=== PATIENT | female | born 1990 | race Caucasian/White ===

== ENCOUNTER 2024-02-10 02:30 | Inpatient (IN) ==
--- NOTE | 2024-02-10 03:29 | History & Physical Report ---
Date of Service February 10, 2024 Assessment & Plan (1) Previous delivery affecting , antepartum: Plan: Patient is hoping to . At this time, she does not appear to be in labor given cervix exam and lack of organized regular contractions. Will monitor over the next few hours to watch for labor. Reviewed the risks vs benefits of - risk of uterine rupture (approx 1%) that may require blood transfusion, emergency surgery including hysterectomy, and risk of of baby/mom. Additionally, blood pressures on arrival are elevated - will monitor these, will check preeclampsia labs. History of Present Illness Chief Complaint: contractions Primary Care Provider: Rodolfo Hunt PA-C 33yo @ 38 02/13 came to L&D with contractions. No leaking fluid. No vaginal bleeding. + movement. complicated by: GDM in prior *Begin monthly Growth US's @24wks Daughter born with Tetrology of Fallot recommend echo (11/19/23@ [facility] [place]) - mild TR, f/u 4 wks - 12/30 -rpt echo shows mild/mod tricuspid valve insufficiency; recommend echo Daughter with Golenhar syndrome--this is not genetic, affects the right side Pap Neg/ HPV+ 09/21/22 *repeat pap in 1 year Prior Section affecting leaning towards ; prior was for breech Wants C/S scheduled for 39 weeks, may attempt TOLAC if labors prior C/S SCHEDULED FOR 02/17/[address] LEIVA Allergies Allergy/AdvReac Type Severity Reaction Status Date / Time celecoxib [From Celebrex] Allergy Severe Anaphylaxis Verified 02/06/24 10:30 ibuprofen Allergy Severe Anaphylaxis Verified 02/06/24 10:30 amoxicillin Allergy Mild Anxiety Verified 02/06/24 10:30 latex Allergy Mild contact Verified 02/06/24 10:30 dermatitis Home Medications Medication Instructions Recorded Confirmed Type vit 168-iron 27 mg-folic 1 cap PO DAILY 07/11/23 02/10/24 History acid 800 mcg-omega3 235 mg capsule (One-A-Day -1) acetone (urine) test (Ketone Urine #50 ea 08/26/23 02/06/24 Rx Test strips) blood sugar diagnostic ([employer] InternationalTouch #150 ea 08/26/23 02/06/24 Rx Verio test strips) blood-glucose meter (OneTouch #1 ea 08/26/23 02/06/24 Rx Verio Reflect Meter) lancets 33 gauge (OneTouch Delica #150 ea 08/26/23 02/06/24 Rx Plus Lancet) Patient History Medical History (Updated 02/05/24 @ 10:57 by Stacey Tobar PA-C) HPV in female last pap smear>states needs to be re-tested Scoliosis Heartburn during Gestational diabetes "diet controlled" Mitral valve disorder "mild thickening noted">no cards Surgical History [place] teeth removed Hx of section x 1 H/O eye surgery at age 2>strabismus repair Family History Mother Diabetes Grandmother (Maternal) Diabetes Other No family history of adverse response to anesthesia Social History Smoking Status: Never smoker Second Hand Exposure: No; Do You Dip or Chew Tobacco: No; Hx Alcohol Use: No Hx Substance Use: No Preferred Language: Bel[place]an Communication Ability: Effective Radioisotope Technologist Required: No Beliefs That Will Affect Care: None marital status: marital status details: Zander (34) [phone] Current Living Situation: Spouse Current Living Situation Comment: lives with spouse, daughter, 1 cat, 1 dog, spouse to change litter current occupational status: employed 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 Other Information That Helps Us Care for You: No Feels Safe at Home: Yes Safety Concerns: Feels Safe At This Time Assistive Devices: None Review of Systems All systems reviewed & are unremarkable except as noted in HPI & below Physical Exam Physical Exam: FHT Cat 1 [place] irreg SVE /-3 per RN Constitutional: WD/WN, vitals as above Respiratory: normal respiratory effort, lungs clear to auscultation no respiratory distress Cardiovascular: Rate/Rhythm: regular rate and regular rhythm Gastrointestinal (Abdomen): Inspection/Auscultation: abdomen normal to inspection Percussion/Palpation: abdomen soft; abdomen nontender Gravid. No s/s chorio or abruption. Skin: no rashes, warm and dry Psychiatric: A+Ox3, euthymic affect Results & Data Vital Signs (Past 12 Hours) Vital Signs Temp Pulse Resp BP 02/10/24 03:24 90 145/72 H 02/10/24 02:57 83 148/87 H 02/10/24 02:44 86 145/87 H 02/10/24 02:43 37.0 C 18 Coding Level of Care Code None Diagnoses Previous delivery affecting , antepartum O34.219
[2024-02-10 04:04] LABS: Basophils # (auto) 0.07 K/uL (0.00-0.20); Basophils % (auto) 0.3 %; Eosinophils # (auto) 0.09 K/uL (0.00-0.50); Eosinophils % (auto) 0.4 %; Hematocrit (blood only) 40.4 % (37.0-47.0); Hemoglobin 13.4 g/dl (12.0-16.0); Immature Granulocytes # (auto) 0.17 K/uL (0.01-0.20); Immature Granulocytes % (auto) 0.8 %; Lymphocytes # (auto) 2.42 K/uL (1.20-3.40); Lymphocytes % (auto) 11.6 %; Mean Corpuscular Hemoglobin 30.2 pg (25.0-34.0); Mean Corpuscular Hgb Conc 33.2 g/dL (32.0-36.0); Mean Platelet Volume 11.9 fL (9.4-12.4); Monocytes # (auto) 0.95 K/uL (0.11-0.59); Monocytes % (auto) 4.5 %; Neutrophils # (auto) 17.22 K/uL (1.40-6.50); Neutrophils % (auto) 82.4 %; Platelet Count 179 K/uL (130-400); RDW Coefficient of Variation 12.6 % (11.5-14.5); RDW Standard Deviation 41.1 fL (36.4-46.3); Red Blood Count 4.44 M/uL (4.20-5.40); White Blood Count 20.92 K/ul (4.8-10.8)
[2024-02-10 04:14] LABS: Albumin Globulin Ratio 1.1 (0.9-2); Albumin Level 3.4 gm/dl (3.4-5.0); BUN Creatinine Ratio 14.5 (10-20); Bilirubin,Total 0.3 mg/dl (0.2-1.0); Calcium 8.5 mg/dl (8.6-10.3); Creatinine Clr Calc Pharmacy 139.1 ml/min; Est GFR (African American) 137.3 ml/min; Est GFR (Non-African American) 118.5 ml/min; Potassium 4.4 mmol/L (3.5-5.1); Total Protein 6.4 gm/dl (6.0-8.3)
[2024-02-10 08:16] LABS: Creatinine Urine Random 62.8 mg/dl; Protein Creatinine Ratio Urine 0.2 (0-0.2); Total Protein Urine Random 10.2 mg/dl (0-11.9)
--- NOTE | 2024-02-10 09:41 | Labor Progress Brief Note ---
Date of Service February 10, 2024 Subjective Patient resting comfortably in bed. Patient was originally evaluated for labor. She is not in labor. However she had elevated blood pressures. Her labs are wnl and u/information services manager was within normal limits. During monitoring, the fetus had a 3 minute decel that resolved spontaneously. It has not done this again. Assessment & Plan (1) Previous delivery affecting , antepartum: (2) with 38 completed weeks gestation: Plan Fetus overall reassuring now but legit decel for three minutes. Not repetitive and has not repeated. Discussed options. Prolonged monitoring to see if does it again, minimally 6 hours and bpp. Discussed that babies don't usually do this but may be a very benign reason for doing it. It is certainly concerning. If occurs again, proceed with delivery. she is not in labor and her cervix is unfavorable for iol, so I do not recommend that. Or , as we know we have a good baby currently, and some concerns because of this decel, could proceed with c/s delivery now. After discussion and asking and answering questions to the best of my ability, they desire to proceed with c/s. Consent reviewed and signed. Physical Exam Physical Exam: cx--not checked toco--irregular contraction efm--130s with mod variability, accels present to 150s, one isolated decel noted. lasted for three minutes to 80-90. May have been with a contraction. Audible and confirmed by the nurse who was in the room at the time. Results & Data Vital Signs (Past 12 Hours) Vital Signs Temp Pulse Resp BP 02/10/24 07:23 81 124/65 02/10/24 07:09 20 02/10/24 07:09 36.9 C 20 02/10/24 06:45 81 125/61 02/10/24 03:24 90 145/72 H 02/10/24 02:57 83 148/87 H 02/10/24 02:44 86 145/87 H 02/10/24 02:43 37.0 C 18 Coding Level of Care Code None Diagnoses Previous delivery affecting , antepartum O34.219 with 38 completed weeks gestation Z3A.38
[2024-02-10] MEDS ORDERED: MoRPHine SULFATE PF 1 MG/ML 10 ML AMP/VIAL ONE (10:09)
[2024-02-10] MEDS: CITRIC ACID/SODIUM CITRATE 15 ML UDC PO SCH (10:10)
[2024-02-10] MEDS: LACTATED RINGER'S 1,000 ML IV SCH ×2 (10:10→15:26)
[2024-02-10] MEDS: CITRIC ACID/SODIUM CITRATE 15 ML UDC ONE (10:12)
[2024-02-10] MEDS: ceFAZolin 2000MG 2,000 MG/15 ML SYR IV SCH (10:25)
[2024-02-10] MEDS ORDERED: ACETAMINOPHEN 1,000 MG/100 ML VIAL IV PRN ×2 (10:36→11:50)
[2024-02-10] MEDS ORDERED: OXYTOCIN 10 UNITS/ML VIAL ONE (11:10)
[2024-02-10] MEDS ORDERED: ONDANSETRON INJ 2 MG/ML 2 ML VIAL ONE (11:10)
[2024-02-10] MEDS ORDERED: PHENYLEPHRINE HCL 25 MG/250 ML NSS IV ONE (11:11)
[2024-02-10 11:38] LABS: CO2 Cord Arterial Blood 52 mmHg (39.1-73.5); HCO3 Cord Arterial Blood 24 mmol/L (19.7-28.5); Oxygen Sat Cord Arterial Blood < 60.0 % (<60); PO2 Cord Arterial Blood 21 mmHg (4.1-31.7); pH Cord Arterial Blood 7.28 (7.1-7.38)
[2024-02-10] MEDS ORDERED: ePHEDrine sulfate 50 MG/ML AMP IV PRN (11:45)
[2024-02-10] MEDS ORDERED: HYDROmorphone INJ 0.5 MG/0.5 ML SYR IV PRN (11:45)
[2024-02-10] MEDS ORDERED: LACTATED RINGER'S 500 ML IV PRN (11:45)
[2024-02-10] MEDS ORDERED: DC INTRASPINAL MORPHINE SCH (11:45)
[2024-02-10] MEDS ORDERED: diphenhydrAMINE 50 MG/ML VIAL IV PRN (11:45)
[2024-02-10] MEDS ORDERED: MEPERIDINE HCL 25 MG/ML CARP/VIAL IV PRN (11:45)
[2024-02-10] MEDS ORDERED: NALOXONE HCL 0.08 MG in SYRINGE 1.8 ML IV PRN (11:45)
[2024-02-10] MEDS ORDERED: NALBUPHINE HCL 5 MG in SYRINGE 0 ML IV PRN (11:45)
[2024-02-10] MEDS ORDERED: NALOXONE HCL 0.4 MG/1 ML VIAL/CARP IV PRN (11:45)
[2024-02-10] MEDS ORDERED: NALOXONE HCL 1 MG in SODIUM CHLORIDE 0.9% 1,000 ML IV PRN (11:45)
[2024-02-10] MEDS ORDERED: NO NARCOTICS OR SEDATIVES SCH (11:45)
--- NOTE | 2024-02-10 11:45 | Anesthesiology Progress Note ---
Date of Service February 10, 2024 Anesthesia Post Procedure Vital Signs Vital Signs: Temp Pulse Resp BP Pulse Ox 02/10/24 11:41 77 143/69 H 02/10/24 11:40 77 99 02/10/24 10:21 85 133/77 02/10/24 07:23 81 124/65 02/10/24 07:09 20 02/10/24 07:09 36.9 C 20 02/10/24 06:45 81 125/61 02/10/24 03:24 90 145/72 H 02/10/24 02:57 83 148/87 H 02/10/24 02:44 86 145/87 H 02/10/24 02:43 37.0 C 18 Transfer of Care Handoff Completed per policy Notes Mental Status: alert / awake / arousable Nausea / Vomiting: adequately controlled Pain: adequately controlled Airway Patency, RR, SpO2: stable & adequate BP & HR: stable & adequate Hydration State: stable & adequate Neuraxial Anesthesia: was administered and sensory block is resolving Anesthetic Complications: no major complications apparent and Pt Satisfied with anesthetic care
[2024-02-10] MEDS ORDERED: BENZOCAINE 20% SPRY 85 APPLN/85 GM CAN EXT PRN (11:50)
[2024-02-10] MEDS ORDERED: MAGNESIUM HYDROXIDE SUSP 30 ML UDC PO PRN (11:50)
[2024-02-10] MEDS ORDERED: SENNA 8.6 MG TAB PO PRN (11:50)
[2024-02-10] MEDS ORDERED: ONDANSETRON INJ 2 MG/ML 2 ML VIAL IV PRN (11:50)
[2024-02-10] MEDS ORDERED: diphenhydrAMINE Capsule 25 MG CAP PO PRN (11:50)
[2024-02-10] MEDS ORDERED: HYDROCORTISONE ACETATE 25 MG SUPP PR PRN (11:50)
[2024-02-10] MEDS ORDERED: ACETAMINOPHEN 325 MG TAB PO PRN (11:50)
[2024-02-10] MEDS ORDERED: PROMETHAZINE HCL 25 MG in SODIUM CHLORIDE 0.9% 50 ML IV PRN (11:50)
--- NOTE | 2024-02-10 11:51 | Operative Report ---
PG Post Operative Report Pre & Post Diagnosis Operation Date: 02/10/24 10:30 Pre-Op Diagnosis: at 38 6/7, nonreassuring testing, unfavorable cervix, hx of previous Section Post-Op Diagnosis: at 38 6/7, nonreassuring testing, unfavorable cervix, hx of previous Section I identified the patient and participated in the time-out.: Yes Procedure Operation Date: 02/10/24 10:30 Actual Procedures pRepeat primary low Section in LD; delivery of live male at 1107 - Monae Gaffney MD, FACOG Surgeon Monae Gaffney MD, FACOG Ski Production Supervisor Pepe Araujo RN, [facility] MS[facility] Estimated Blood Loss 588 Findings Consistent with Post-Op Diagnosis Fluids ivf--1000cc uop--150cc clear Specimens cord blood gases Drains abreu Anesthesia Type Spinal Complications none Disposition Accompanied Patient To Recovery: Yes Disposition: L&D Indications Patient is a 33yowf with hx of previous who presented to labor and delivery with contractions. Hoping to . During observation, fetus had a decel to 80-90 for three minutes. cx unfavorable. Given remote from delivery and concern for well being, decided to proceed with delivery. Description of Procedure The patient was taken to the operating room where she was identified verbally and by bracelet. She was seated on the operating table where a spinal anesthetic was placed by anesthesia. She was then placed in the supine position with a leftward tilt. A Abreu catheter was placed sterilely. the patient was prepped and draped in a normal standard fashion. the anesthetic was tested and found to be adequate. A time-out was held, identifying correct patient, procedure, positioning and preoperative antibiotics. There were no concerns. A Pfannenstiel skin incision was made with a knife and taken down to the underlying layer of fascia with the knife and Bovie electrocautery. Bleeding was attended to with the Bovie. The fascia was incised in the midline with the knife and taken out laterally with scissors. The superior edge of the fascial incision was grasped, elevated and the underlying layer of rectus muscle was taken off bluntly and with scissors. In a similar fashion, the inferior edge of the fascial incision was grasped, elevated and the underlying layer of rectus muscle was taken off bluntly and with scissors. The muscles were bluntly in the midline. The peritoneum was entered sharply. The incision was then stretched. The bladder blade was placed. The vesicouterine peritoneum was identified, entered with scissors and taken out laterally with scissors. The bladder flap was created digitally A hysterotomy incision was scored with a knife and the incision was stretched superiorly and inferiorly with the finish off operator's fingers. The juan was thin. The operators hand was placed into the incision and the head was delivered atraumatically. No nuchal cord. The nose and mouth were bulb suctioned. the rest of the was then delivered without difficulty. The nose and mouth were again bulb suctioned. The cord was clamped and cut and the was then handed off to the awaiting sales operations analyst for drying and attention. Cord blood and segment were obtained. The placenta was Manually extracted. The uterus was exteriorized and cleared of all clot and debris with moistened laparotomy sponges. The hysterotomy incision was repaired in two layers, the first in a running locked layer, the second in an imbricating layer. Hemostasis was noted to be good. Posterior cul-de-sac was irrigated and cleared of all clot and debris. The hysterotomy incision was again inspected and found to be hemostatic. the uterus was reinteriorized. Hysterotomy incision was again inspected and a suture was needed in the right corner. then hemostasis was good. The fascia was then reapproximated with 0 Vicryl starting at the edges and meeting in the midline. The subcuticular tissues were copiously irrigated and bleeding was attended to with cautery. The skin was then closed with 4-0 Vicryl in a subcuticular fashion. All sponge, lap and needle counts were correct x 2. the patient tolerated the procedure well and was taken to the recovery room in stable condition. I attest to the content of the Intraoperative Record and any orders documented therein. Any exceptions are noted below. OB Procedure Charges 11797
[2024-02-10] MEDS: OXYTOCIN 20 UNITS/LR 1,002 ML IV SCH (12:02)
[2024-02-10] MEDS: DIPHTHER/TETAN/PERTUS Vaccine (Tdap, Adol/Adult) 0.5mL IM ONE (12:08)
[2024-02-10] MEDS: ACETAMINOPHEN 1000 MG/100 ML IV IV ONE (15:25)
[2024-02-10] MEDS: MoRPHine SULFATE PF 1 MG/ML 10 ML AMP/VIAL INT SPINAL ONE (15:25)
[2024-02-10] MEDS: OXYTOCIN 20 UNITS/1002ML LR IV ONE (15:26)
[2024-02-10] MEDS: SODIUM CHLORIDE 0.9% 1,000 ML IV SCH (15:26)
[2024-02-10] MEDS: SIMETHICONE 80 MG CHEW PO SCH (15:26)
[2024-02-10] MEDS: ONDANSETRON INJ 2 MG/ML 2 ML VIAL IV PRN (16:23)
[2024-02-10] MEDS: MoRPHine SULFATE 2 MG/ML CARP IV PRN (18:12)
[2024-02-10] MEDS: PROMETHAZINE HCL 6.25 MG in SODIUM CHLORIDE 0.9% 50 ML IV PRN (18:35)
[2024-02-10] MEDS: DOCUSATE SODIUM 100 MG CAP PO SCH (22:02)
[2024-02-11] MEDS ORDERED: MEPERIDINE HCL 50 MG/ML CARP IV PRN (05:47)
[2024-02-11] MEDS ORDERED: diphenhydrAMINE 50 MG/ML VIAL IV PRN (05:47)
--- NOTE | 2024-02-11 05:47 | Obstetrical Progress Note ---
Date of Service February 11, 2024 Assessment & Plan (1) Encounter for care and examination after delivery: Plan 33 y/o POD# 1 s/p Doing well Encourage ambulation Vial signs reviewed Pain control Encourage Rubella immune, BGT: O+ Continue post care Admission and Anticipated Discharge Date Admission Date: February 10, 2024 Supervising Physician Co-Signing Physician Notes Resident Physician Supervision Note: I interviewed and examined the patient. Discussed with Dr. Titus and agree with findings and plan as documented in the note. Any exceptions or clarifications are listed here: Doing well pod#1. Has not voided yet. Tolerating po after some nausea yesterday. Pain controlled. Routine care. Documented By: Monae Gaffney MD, FACOG Subjective 33 yo POD#1 s/p Ambulation: ambulating normally Voiding: Kiser discontinue this morning Passing Gas:: Yes Diet Tolerance:: regular diet Lochia:: Small Feeding Type: breast feeding Current Pain Level: moderate, control with pain meds Resting comfortably this AM in NAD. Denies GARCIA, CP, SOB, N/V/D, LE pain/swelling. Review of Systems Review of Systems: as per hpi Physical Exam Physical Exam: General: patient resting comfortably, NAD, non-toxic in appearance, AA&O x 4, answers questions appropriately. Heart: +S1/S2, regular, no m/r/g Lungs: equal air entry bilaterally, no rales/rhonchi/wheezes Abd: +BS, soft, NT/ND, uterine fundus firm at umbilicus, incision clean and dry, no signs of infection Ext: warm, no clubbing/cyanosis or edema, Fina's neg. Neuro: nonfocal, patient AA&O x 4, speech intact, no facial droop, moving all extremities on command. Results & Data Vital Signs (Past 12 Hours) Vital Signs Temp Pulse Resp BP Pulse Ox O2 Del Method 02/11/24 05:00 18 94 02/11/24 04:20 18 94 02/11/24 03:25 18 93 02/11/24 03:25 36.8 C 87 18 123/79 93 Room Air 02/11/24 02:00 16 95 02/11/24 01:15 18 02/11/24 00:05 18 95 02/10/24 23:15 36.8 C 83 18 120/79 96 Room Air 02/10/24 23:15 18 96 02/10/24 22:00 18 98 02/10/24 21:00 18 99 02/10/24 20:35 18 99 02/10/24 19:30 18 99 02/10/24 19:30 36.4 C L 72 18 126/81 99 Room Air 02/10/24 18:15 16 99 Resident Activity Tracking Resident Involvement: Resident Care Provided Care Provided: OB Delivery
[2024-02-11] MEDS: oxyCODONE HCL IR 5 MG TAB (IMMEDIATE RELEASE) PO PRN (06:24)
[2024-02-11 07:13] LABS: Basophils # (auto) 0.04 K/uL (0.00-0.20); Basophils % (auto) 0.3 %; Eosinophils % (auto) 0.8 %; Hematocrit (blood only) 36.5 % (37.0-47.0); Immature Granulocytes # (auto) 0.08 K/uL (0.01-0.20); Immature Granulocytes % (auto) 0.7 %; Lymphocytes # (auto) 1.75 K/uL (1.20-3.40); Lymphocytes % (auto) 14.7 %; Mean Corpuscular Hgb Conc 32.9 g/dL (32.0-36.0); Mean Corpuscular Volume 91.3 fL (80.0-100.0); Mean Platelet Volume 11.4 fL (9.4-12.4); Monocytes # (auto) 0.61 K/uL (0.11-0.59); Monocytes % (auto) 5.1 %; Neutrophils # (auto) 9.32 K/uL (1.40-6.50); Neutrophils % (auto) 78.4 %; Platelet Count 153 K/uL (130-400); RDW Coefficient of Variation 12.5 % (11.5-14.5); RDW Standard Deviation 41.6 fL (36.4-46.3)
[2024-02-11] MEDS: PRENATAL VITAMIN 1 TAB PO SCH (08:49)
[2024-02-11] MEDS: FERROUS SULFATE 325 MG TAB PO SCH (08:49)
[2024-02-11] MEDS: bisacodyL 5 MG TABEC PO SCH (20:03)
[2024-02-12 06:38] LABS: Hematocrit (blood only) 35.5 % (37.0-47.0); Hemoglobin 11.8 g/dl (12.0-16.0)
--- NOTE | 2024-02-12 06:40 | Obstetrical Progress Note ---
Date of Service February 12, 2024 Assessment & Plan (1) Encounter for care and examination after delivery: Plan 33 y/o POD# 2 s/p Doing well Encourage ambulation Vial signs reviewed Pain control Encourage Rubella immune, BGT: O+ Continue post care Admission and Anticipated Discharge Date Admission Date: February 10, 2024 Supervising Physician Co-Signing Physician Notes Patient seen with resident and agree with the above findings and plan. Doing well and stable for discharge Subjective 33 yo POD#2 s/p Ambulation: ambulating normally Voiding: No voiding problems Passing Gas:: Yes Diet Tolerance:: regular diet Lochia:: Small Feeding Type: breast feeding Current Pain Level: moderate, control with pain meds Resting comfortably this AM in NAD. Denies GARCIA, CP, SOB, N/V/D, LE pain/swelling. Review of Systems Review of Systems: as per hpi Physical Exam Physical Exam: General: patient resting comfortably, NAD, non-toxic in appearance, AA&O x 4, answers questions appropriately. Heart: +S1/S2, regular, no m/r/g Lungs: equal air entry bilaterally, no rales/rhonchi/wheezes Abd: +BS, soft, NT/ND, uterine fundus firm at umbilicus, incision clean and dry, no signs of infection Ext: warm, no clubbing/cyanosis or edema, Fina's neg. Neuro: nonfocal, patient AA&O x 4, speech intact, no facial droop, moving all extremities on command. Results & Data Vital Signs (Past 12 Hours) Vital Signs Temp Pulse Resp BP BP Pulse Ox O2 Del Method 02/11/24 23:45 36.6 C 86 16 113/73 98 Room Air 02/11/24 19:40 37.0 C 90 20 120/76 97 Room Air Resident Activity Tracking Resident Involvement: Resident Care Provided Care Provided: OB Delivery
[2024-02-12] MEDS ORDERED: bisacodyL 10 MG SUPP PR PRN (11:42)
== END 2024-02-12 12:22 | disposition home or self-care (01) | DRG 788 ==
LOC: OPB 02:30 → 4S1 02:34 → 4E2 15:46